=== PATIENT | female | born 1940 | race Caucasian/White ===

== ENCOUNTER 2021-01-20 15:03 | Inpatient (IN) | payer OTHER ==
[~2021-01-20] VITALS: Ht 160 cm; Wt 44.2 kg
[~2021-01-20 15:03] MED LIST: AMBIEN10 MG PO; ASPIRIN EC325 MG PO; AZITHROMYCIN250 MG PO; BACLOFEN 10MG T10 MG PO; BUMETANIDE1 MG PO; COUMADIN5 MG PO; ISOSORBIDE MONO60 MG PO; LIPITOR20 MG PO; LISINOPRIL-HCT1 EAC1 PO; MEDROL 4MG DOSEP4 MG PO; NEURONTIN300 MG PO; PREDNISONE 20MG20 MG PO; PRINIVIL20 MG PO; TOPROL XL 25MG25 MG PO; VENTOLIN HFA IN18 GM INH; WARFARIN SODIUM1 MG PO; WARFARIN SODIUM2 MG PO
[2021-01-20 15:43] LABS: EOSINOPHIL 1.9 % (0-7); HCT 34.2 % (37.0-47.0); HGB 10.2 g/dl (12.5-16.0); LYMPHOCYTE 3.6 % (15-48); MCH 21.2 pg (25.0-31.0); MCHC 29.8 g/dL (32.0-36.0); MONOCYTE 2.2 % (0-12); MPV 10.4 fL (6.0-9.5); NEUTROPHIL 83.2 % (41-80); NRBC 0.3; PLT 517 K/uL (150-400); RBC 4.82 M/uL (4.20-5.40); RDW 23.5 % (11.5-14.0); WBC 20.7 K/uL (4.0-10.5)
[2021-01-20 15:45] LABS: PROTHROMBIN TIME 61.6 SECONDS (11.4-13.6)
[2021-01-20 15:47] LABS: ALBUMIN 3.3 g/dL (3.4-5.0); CREATININE 0.95 mg/dL (0.51-0.95); GLOBULIN (CALCULATION) 3.8 g/dL; INR 7.58 (0.9-1.2); POTASSIUM 4.2 mmol/L (3.5-5.1); PTT 83.6 SECONDS (22.2-34.7); TOTAL PROTEIN 7.1 g/dL (6.4-8.2)
[2021-01-20 17:29] LABS: LACTIC ACID 1.1 mmol/L (0.4-1.9)
[2021-01-20 18:11] LABS: PRO-BNP > 35000 pg/mL (<450)
[2021-01-20 18:36] LABS: BILIRUBIN NEGATIVE (NEGATIVE); BLOOD TRACE-INTACT Ery/uL (NEGATIVE); CLARITY CLEAR (CLEAR); GLUCOSE (U) NORMAL (NORMAL); LEUKOCYTES NEGATIVE Leu/uL (NEGATIVE); NITRITE NEGATIVE (NEGATIVE); PROTEIN NEGATIVE (NEGATIVE); UROBILINOGEN 0.2 mg/dL (0.2-1.0); pH 6.5 (5.0-9.0)
[2021-01-20 18:38] LABS: COLOR COLORLESS (YELLOW)
[2021-01-20 18:45] LABS: SQUAMOUS EPITHELIAL CELLS RARE; URINARY RBC RARE; URINARY WBC RARE
[2021-01-20 21:47] LABS: CORONAVIRUS 2019 SARS-COV-2 NEGATIVE (NEGATIVE); INFLUENZA A NAA NEGATIVE (NEGATIVE)
[2021-01-20] MEDS ORDERED: WARFARIN SODIUM3 MG PO (22:27)
[2021-01-21 05:59] LABS: BASOPHIL 1.2 % (0-2); EOSINOPHIL 3.3 % (0-7); HCT 33.8 % (37.0-47.0); HGB 10.2 g/dl (12.5-16.0); LYMPHOCYTE 2.9 % (15-48); MCH 21.3 pg (25.0-31.0); MCHC 30.2 g/dL (32.0-36.0); MCV 70.4 fL (78.0-100.0); MONOCYTE 2.5 % (0-12); NEUTROPHIL 80.8 % (41-80); NRBC 0.4; PLT 474 K/uL (150-400); RDW 23.2 % (11.5-14.0); WBC 20.9 K/uL (4.0-10.5)
[2021-01-21 06:12] LABS: PROTHROMBIN TIME 74.9 SECONDS (11.4-13.6)
[2021-01-21 06:15] LABS: INR 9.72 (0.9-1.2)
[2021-01-21 06:19] LABS: BUN/CREAT RATIO (CALC) 20.7 RATIO; CREATININE 0.92 mg/dL (0.51-0.95); POTASSIUM 3.8 mmol/L (3.5-5.1)
--- NOTE | 2021-01-21 15:24 | NUR ---
01/21/21 Ms. Thomas resides at [facility]. She has a rw. [facility] is current and patient wishes to continue with their services. Affliation is understood. A referral was made to [facility] via [facility]. - Please monitor patient for home 02 needs.
--- NOTE | 2021-01-21 22:29 | NUR ---
Pt calls bedside nurse and reports restless legs. Pt is adament that drinking water would help but is on 1500cc fluid restriction. Called [facility], and relayed message. Valium 2.5mg ordered and SCD placed on patient for comfort effect.
--- NOTE | 2021-01-21 23:29 | NUR ---
Pt has purple quarter size lump that is painful to touch on right calf. Area around lump is ecchymotic but is not red or swollen. SCD removed from that leg and [facility] Morse, called and notified.
[2021-01-22 06:05] LABS: BASOPHIL 1.7 % (0-2); EOSINOPHIL 3.3 % (0-7); HCT 38.8 % (37.0-47.0); HGB 11.5 g/dl (12.5-16.0); MCH 21.3 pg (25.0-31.0); MCHC 29.6 g/dL (32.0-36.0); MCV 71.9 fL (78.0-100.0); MONOCYTE 2.5 % (0-12); NEUTROPHIL 79.2 % (41-80); PLT 560 K/uL (150-400); RDW 23.5 % (11.5-14.0); WBC 21.6 K/uL (4.0-10.5)
[2021-01-22 06:17] LABS: INR 1.65 (0.9-1.2); PROTHROMBIN TIME 18.5 SECONDS (11.4-13.6)
[2021-01-22 06:40] LABS: BAND 1 % (0-10); BASOPHIL(M) 1 % (0-2); EOSINOPHIL(M) 3 % (0-7); LYMPHOCYTE(M) 3 % (15-48); MONOCYTE(M) 4 % (0-12); MYELOCYTE 1; NEUTROPHILS(M) 87 % (41-80); TOTAL CELL COUNT 100
[2021-01-22 06:41] LABS: PLATELET ESTIMATE NORMAL; PLATELET MORPHOLOGY NORMAL
[2021-01-22 07:08] LABS: BUN/CREAT RATIO (CALC) 22.3 RATIO; CREATININE 0.94 mg/dL (0.51-0.95); POTASSIUM 3.8 mmol/L (3.5-5.1)
--- NOTE | 2021-01-22 15:30 | NUR ---
SPOKE WITH PT. NURSECHRISTI. ADVISED THAT IF PT. IS TO GO HOME ON O2 A WALK TEST WILL BE NEEDED. PT MAY BE DISCHARGED 01/23/2021, BUT UNSURE AT THIS TIME.
[2021-01-23 06:19] LABS: HCT 36.3 % (37.0-47.0); HGB 10.8 g/dl (12.5-16.0); MCH 21.1 pg (25.0-31.0); MCHC 29.8 g/dL (32.0-36.0); MCV 70.9 fL (78.0-100.0); MPV 10.7 fL (6.0-9.5); RBC 5.12 M/uL (4.20-5.40); RDW 23.6 % (11.5-14.0); WBC 19.5 K/uL (4.0-10.5)
[2021-01-23 06:27] LABS: INR 1.57 (0.9-1.2); PROTHROMBIN TIME 17.8 SECONDS (11.4-13.6)
[2021-01-23 06:40] LABS: BUN/CREAT RATIO (CALC) 23.5 RATIO; CREATININE 0.98 mg/dL (0.51-0.95); POTASSIUM 3.6 mmol/L (3.5-5.1)
--- NOTE | 2021-01-23 14:04 | NUR ---
01/23/21 Please notify [facility] if patient is discharged over the weekend, [phone].
[2021-01-24 04:50] LABS: BASOPHIL 1.6 % (0-2); EOSINOPHIL 3.7 % (0-7); HCT 36.8 % (37.0-47.0); HGB 10.6 g/dl (12.5-16.0); LYMPHOCYTE 3.9 % (15-48); MCH 20.9 pg (25.0-31.0); MCHC 28.8 g/dL (32.0-36.0); MCV 72.7 fL (78.0-100.0); MONOCYTE 2.1 % (0-12); MPV 10.6 fL (6.0-9.5); NRBC 0.3; PLT 509 K/uL (150-400); RBC 5.06 M/uL (4.20-5.40); RDW 23.7 % (11.5-14.0); WBC 22.4 K/uL (4.0-10.5)
[2021-01-24 04:54] LABS: NEUTROPHIL 79.5 % (41-80)
[2021-01-24 04:57] LABS: INR 1.53 (0.9-1.2); PROTHROMBIN TIME 17.5 SECONDS (11.4-13.6)
[2021-01-24 05:18] LABS: BILIRUBIN - TOTAL 0.7 mg/dL (0.2-1.0); BUN/CREAT RATIO (CALC) 28.6 RATIO; CREATININE 0.98 mg/dL (0.51-0.95); GLOBULIN (CALCULATION) 3.8 g/dL; POTASSIUM 4.1 mmol/L (3.5-5.1); TOTAL PROTEIN 6.8 g/dL (6.4-8.2)
[2021-01-25 04:04] LABS: BASOPHIL 1.1 % (0-2); EOSINOPHIL 1.8 % (0-7); HCT 36.5 % (37.0-47.0); HGB 10.9 g/dl (12.5-16.0); LYMPHOCYTE 4.3 % (15-48); MCH 21.3 pg (25.0-31.0); MCHC 29.9 g/dL (32.0-36.0); MCV 71.4 fL (78.0-100.0); MONOCYTE 2.5 % (0-12); NRBC 0.3; PLT 434 K/uL (150-400); RBC 5.11 M/uL (4.20-5.40); RDW 23.3 % (11.5-14.0); WBC 20.8 K/uL (4.0-10.5)
[2021-01-25 04:12] LABS: INR 1.76 (0.9-1.2); PROTHROMBIN TIME 19.5 SECONDS (11.4-13.6)
[2021-01-25 04:17] LABS: TOTAL CELL COUNT 100
[2021-01-25 04:18] LABS: BAND 8 % (0-10); LYMPHOCYTE(M) 7 % (15-48); MONOCYTE(M) 3 % (0-12); NEUTROPHILS(M) 80 % (41-80)
[2021-01-25 04:19] LABS: BASOPHIL(M) 0 % (0-2); EOSINOPHIL(M) 2 % (0-7); PLATELET ESTIMATE NORMAL; PLATELET MORPHOLOGY NORMAL
[2021-01-25 04:34] LABS: BUN/CREAT RATIO (CALC) 27.4 RATIO; CREATININE 1.13 mg/dL (0.51-0.95); MAGNESIUM 1.3 mg/dL (1.8-2.4); POTASSIUM 4.2 mmol/L (3.5-5.1)
[2021-01-25 09:16] LABS: RETICULOCYTE COUNT 3.4 % (1.0-2.0)
[2021-01-25 09:22] LABS: IRON % SATURATION 19.2 %SAT (20-50)
[2021-01-25 10:25] LABS: PHOSPHORUS 4.2 mg/dL (2.6-4.7)
[2021-01-25 21:37] LABS: BILIRUBIN NEGATIVE (NEGATIVE); BLOOD NEGATIVE Ery/uL (NEGATIVE); CLARITY CLEAR (CLEAR); COLOR YELLOW (YELLOW); GLUCOSE (U) NORMAL (NORMAL); LEUKOCYTES NEGATIVE Leu/uL (NEGATIVE); NITRITE NEGATIVE (NEGATIVE); PROTEIN NEGATIVE (NEGATIVE); SPECIFIC GRAVITY 1.015 (1.001-1.030); UROBILINOGEN 0.2 mg/dL (0.2-1.0); pH 5.5 (5.0-9.0)
[2021-01-25 21:52] LABS: URINARY RBC RARE
[2021-01-26 06:35] LABS: BASOPHIL 1.3 % (0-2); EOSINOPHIL 3.4 % (0-7); HCT 35.7 % (37.0-47.0); HGB 10.5 g/dl (12.5-16.0); LYMPHOCYTE 5.2 % (15-48); MCH 21.1 pg (25.0-31.0); MCHC 29.4 g/dL (32.0-36.0); MCV 71.8 fL (78.0-100.0); MONOCYTE 2.1 % (0-12); MPV 10.3 fL (6.0-9.5); NEUTROPHIL 79.6 % (41-80); NRBC 0.5; PLT 420 K/uL (150-400); RBC 4.97 M/uL (4.20-5.40); RDW 23.5 % (11.5-14.0); WBC 18.6 K/uL (4.0-10.5)
[2021-01-26 06:44] LABS: PROTHROMBIN TIME 21.6 SECONDS (11.4-13.6)
[2021-01-26 07:16] LABS: BUN/CREAT RATIO (CALC) 30.3 RATIO; CREATININE 1.32 mg/dL (0.51-0.95); POTASSIUM 4.1 mmol/L (3.5-5.1)
[2021-01-26 07:22] LABS: MAGNESIUM 2.2 mg/dL (1.8-2.4)
[2021-01-27 06:19] LABS: INR 2.23 (0.9-1.2); PROTHROMBIN TIME 23.5 SECONDS (11.4-13.6)
[2021-01-27 07:15] LABS: BUN/CREAT RATIO (CALC) 32.9 RATIO; CREATININE 1.55 mg/dL (0.51-0.95); POTASSIUM 4.2 mmol/L (3.5-5.1)
[2021-01-28 09:26] LABS: INR 2.41 (0.9-1.2)
[2021-01-28] MEDS ORDERED: COZAAR50 MG PO (11:03)
[2021-01-28] MEDS ORDERED: BUMETANIDE1 MG PO (11:03)
[2021-01-28] MEDS ORDERED: ASPIRIN EC81 MG PO (11:03)
[2021-01-28] MEDS ORDERED: TOPROL XL 25MG25 MG PO (11:03)
--- NOTE | 2021-01-28 11:57 | NUR ---
01/28/21 Patient will return to [facility] today. [facility] was informed of discharge.
--- NOTE | 2021-01-28 12:43 | NUR ---
DISCHARGE ORDERS RECEIVED. PT TO RETURN TO [facility] PER FAMILY. PT TO PT PICKUP BY WHEELCHAIR. IV DC'D. PT VERBALIZED UNDERSTANDING OF ALL DC ORDERS AND MEDICATIONS.
== END 2021-01-28 13:00 | DRG 281 ==
LOC: FER 15:03 → FTCU 20:03
PROVIDERS: Emergency Medicine; Emergency Medicine Emergency Medical Services; Hospitalist; Internal Medicine; Internal Medicine Cardiovascular Disease; Nurse Practitioner; Nurse Practitioner Family; ADMIT Allergy & Immunology Allergy
DX: I11.0 Hypertensive heart disease with heart failure (principal); I21.A1 Myocardial infarction type 2; J44.1 Chronic obstructive pulmonary disease with (acute) exacerbation; D68.59 Other primary thrombophilia; I50.23 Acute on chronic systolic (congestive) heart failure; F01.50 Vascular dementia, unspecified severity, without behavioral disturbance, psychotic disturbance, mood disturbance, and anxiety; I48.0 Paroxysmal atrial fibrillation; R04.0 Epistaxis; E83.42 Hypomagnesemia; Z66 Do not resuscitate; Z51.5 Encounter for palliative care; Z20.822 Contact with and (suspected) exposure to COVID-19; I25.5 Ischemic cardiomyopathy; I25.10 Atherosclerotic heart disease of native coronary artery without angina pectoris; E78.5 Hyperlipidemia, unspecified; Z98.890 Other specified postprocedural states; Z95.2 Presence of prosthetic heart valve; Z95.810 Presence of automatic (implantable) cardiac defibrillator; Z95.5 Presence of coronary angioplasty implant and graft; Z79.01 Long term (current) use of anticoagulants; Z79.82 Long term (current) use of aspirin
CPT/HCPCS: 36415; 36600; 71045; 71275; 80048; 80053; 81001; 82553; 82607; 82746; 82803; 83540; 83550; 83605; 83735; 83880; 84100; 84145; 84484; 85025; 85610; 85730; 87040; 93005; 97161; 97166; 97530-GP; 97535; G0378; J0696; J1650; J1940; J2405; J3475; J7050; Q9967; U0002

== ENCOUNTER 2021-04-03 14:54 | Inpatient (IN) | payer OTHER ==
[~2021-04-03] VITALS: Ht 160 cm; Wt 44.1 kg
[~2021-04-03 14:54] MED LIST changes: +ASPIRIN EC81 MG PO; +COZAAR50 MG PO; +WARFARIN SODIUM3 MG PO
[2021-04-03 15:55] LABS: BASOPHIL 0.5 % (0-2); EOSINOPHIL 1.7 % (0-7); HGB 10.6 g/dl (12.5-16.0); LYMPHOCYTE 3.9 % (15-48); MCH 20.1 pg (25.0-31.0); MCHC 29.4 g/dL (32.0-36.0); MCV 68.2 fL (78.0-100.0); MONOCYTE 1.9 % (0-12); NEUTROPHIL 86.8 % (41-80); NRBC 0.3; PLT 515 K/uL (150-400); RBC 5.28 M/uL (4.20-5.40)
[2021-04-03 15:56] LABS: WBC 23.5 K/uL (4.0-10.5)
[2021-04-03 16:09] LABS: INR 3.56 (0.9-1.2); PROTHROMBIN TIME 34.5 SECONDS (11.8-13.4); PTT 62.3 SECONDS (24.4-34.7)
[2021-04-03 16:10] LABS: D-DIMER 1.77 ug/mLFEU (0.00-0.41)
[2021-04-03 16:26] LABS: ALBUMIN 3.2 g/dL (3.4-5.0); BILIRUBIN - TOTAL 0.7 mg/dL (0.2-1.0); BUN/CREAT RATIO (CALC) 26.4 RATIO; CREATININE 0.91 mg/dL (0.51-0.95); GLOBULIN (CALCULATION) 3.9 g/dL; POTASSIUM 4.5 mmol/L (3.5-5.1); TOTAL PROTEIN 7.1 g/dL (6.4-8.2)
[2021-04-03 16:32] LABS: LACTIC ACID 1.4 mmol/L (0.4-1.9)
[2021-04-03 16:34] LABS: FT4 (FREE T4) 1.3 ng/dL (0.76-1.46)
[2021-04-03 16:48] LABS: LDH 780 U/L (81-234)
[2021-04-04 06:40] LABS: BASOPHIL 0.8 % (0-2); EOSINOPHIL 1.6 % (0-7); HCT 30.5 % (37.0-47.0); HGB 8.9 g/dl (12.5-16.0); LYMPHOCYTE 3.5 % (15-48); MCH 20.2 pg (25.0-31.0); MCHC 29.2 g/dL (32.0-36.0); MCV 69.2 fL (78.0-100.0); MONOCYTE 2.6 % (0-12); MPV 10.7 fL (6.0-9.5); NRBC 0.3; PLT 430 K/uL (150-400); RBC 4.41 M/uL (4.20-5.40); RDW 23.4 % (11.5-14.0); WBC 19.4 K/uL (4.0-10.5)
[2021-04-04 06:50] LABS: INR 4.19 (0.9-1.2); PROTHROMBIN TIME 39.3 SECONDS (11.8-13.4)
[2021-04-04 07:52] LABS: ALBUMIN 2.8 g/dL (3.4-5.0); BILIRUBIN - TOTAL 0.8 mg/dL (0.2-1.0); BUN/CREAT RATIO (CALC) 26.1 RATIO; CREATININE 0.88 mg/dL (0.51-0.95); GLOBULIN (CALCULATION) 3.1 g/dL; MAGNESIUM 1.6 mg/dL (1.8-2.4); POTASSIUM 3.6 mmol/L (3.5-5.1); TOTAL PROTEIN 5.9 g/dL (6.4-8.2)
[2021-04-05 06:40] LABS: EOSINOPHIL 2.8 % (0-7); HCT 33.1 % (37.0-47.0); HGB 9.6 g/dl (12.5-16.0); LYMPHOCYTE 3.3 % (15-48); MCH 20.3 pg (25.0-31.0); MCV 69.8 fL (78.0-100.0); MONOCYTE 2.4 % (0-12); NEUTROPHIL 83.5 % (41-80); NRBC 0.2; PLT 454 K/uL (150-400); RBC 4.74 M/uL (4.20-5.40); RDW 23.4 % (11.5-14.0); WBC 19.5 K/uL (4.0-10.5)
[2021-04-05 06:53] LABS: INR 3.45 (0.9-1.2); PROTHROMBIN TIME 33.7 SECONDS (11.8-13.4)
[2021-04-05 07:04] LABS: ALBUMIN 2.8 g/dL (3.4-5.0); BILIRUBIN - TOTAL 0.8 mg/dL (0.2-1.0); BUN/CREAT RATIO (CALC) 21.5 RATIO; CREATININE 0.93 mg/dL (0.51-0.95); GLOBULIN (CALCULATION) 3.3 g/dL; MAGNESIUM 1.9 mg/dL (1.8-2.4); POTASSIUM 4.6 mmol/L (3.5-5.1); TOTAL PROTEIN 6.1 g/dL (6.4-8.2)
[2021-04-05 07:35] LABS: TOTAL CELL COUNT 100
[2021-04-05 07:38] LABS: EOSINOPHIL(M) 3 % (0-7); LYMPHOCYTE(M) 2 % (15-48); MONOCYTE(M) 2 % (0-12); NEUTROPHILS(M) 90 % (41-80)
[2021-04-05 07:39] LABS: ANISOCYTOSIS MODERATE; PLATELET ESTIMATE INCREASED; PLATELET MORPHOLOGY NORMAL; POIKILOCYTOSIS SLIGHT; PROMYELOCYTE 3
[2021-04-05] MEDS ORDERED: BUMEX1 MG PO (14:00)
[2021-04-05] MEDS ORDERED: POTASSIUM CHLO10 ME1 PO (14:00)
== END 2021-04-05 14:45 | disposition home or self-care (01) | DRG 291 ==
LOC: FER 14:54 → FMS 20:47
PROVIDERS: Emergency Medicine; Nurse Practitioner; ADMIT Internal Medicine
DX: I11.0 Hypertensive heart disease with heart failure (principal); J96.01 Acute respiratory failure with hypoxia; I50.33 Acute on chronic diastolic (congestive) heart failure; I25.10 Atherosclerotic heart disease of native coronary artery without angina pectoris; D72.828 Other elevated white blood cell count; Z20.822 Contact with and (suspected) exposure to COVID-19; I25.5 Ischemic cardiomyopathy; I48.0 Paroxysmal atrial fibrillation; Z66 Do not resuscitate; N32.81 Overactive bladder; F01.50 Vascular dementia, unspecified severity, without behavioral disturbance, psychotic disturbance, mood disturbance, and anxiety; Z95.5 Presence of coronary angioplasty implant and graft; I25.2 Old myocardial infarction; Z95.2 Presence of prosthetic heart valve; Z79.01 Long term (current) use of anticoagulants; Z95.810 Presence of automatic (implantable) cardiac defibrillator; Z90.81 Acquired absence of spleen; Z79.899 Other long term (current) drug therapy
CPT/HCPCS: 36415; 36600; 71045; 80053; 82728; 82803; 83605; 83615; 83735; 83880; 84100; 84145; 84439; 84443; 84484; 85025; 85379; 85610; 85730; 87040; 93005; J2543; J3475; U0002

== ENCOUNTER 2021-05-07 17:31 | Emergency (ER) | payer OTHER ==
[~2021-05-07 17:31] MED LIST changes: +BUMEX1 MG PO; +POTASSIUM CHLO10 ME1 PO
[2021-05-07 21:46] LABS: EOSINOPHIL 3.6 % (0-7); HCT 35.5 % (37.0-47.0); HGB 10.4 g/dl (12.5-16.0); LYMPHOCYTE 3.6 % (15-48); MCH 20.4 pg (25.0-31.0); MCHC 29.3 g/dL (32.0-36.0); MCV 69.7 fL (78.0-100.0); MONOCYTE 2.7 % (0-12); NEUTROPHIL 80.2 % (41-80); NRBC 0.5; PLT 390 K/uL (150-400); RBC 5.09 M/uL (4.20-5.40); RDW 24.3 % (11.5-14.0)
[2021-05-07 21:57] LABS: INR 2.24 (0.9-1.2); PROTHROMBIN TIME 23.9 SECONDS (11.8-13.4)
[2021-05-07 22:04] LABS: BUN/CREAT RATIO (CALC) 32.3 RATIO; CREATININE 0.96 mg/dL (0.51-0.95); POTASSIUM 3.7 mmol/L (3.5-5.1)
[2021-05-07 22:23] LABS: WBC 22.3 K/uL (4.0-10.5)
[2021-05-07 22:46] LABS: BILIRUBIN NEGATIVE (NEGATIVE); BLOOD TRACE-INTACT Ery/uL (NEGATIVE); COLOR YELLOW (YELLOW); GLUCOSE (U) NORMAL (NORMAL); LEUKOCYTES 1+ Leu/uL (NEGATIVE); NITRITE NEGATIVE (NEGATIVE); PROTEIN NEGATIVE (NEGATIVE); UROBILINOGEN 0.2 mg/dL (0.2-1.0); pH 5.5 (5.0-9.0)
[2021-05-07 22:54] LABS: CLARITY SLIGHTLY HAZY (CLEAR)
[2021-05-07 22:58] LABS: BACTERIA 1+
[2021-05-07 22:59] LABS: URIC ACID CRYSTALS MODERATE
== END 2021-05-08 00:45 | disposition home or self-care (01) ==
LOC: FER 17:31
PROVIDERS: Nurse Practitioner Family
DX: S51.812A Laceration without foreign body of left forearm, initial encounter (principal); D72.829 Elevated white blood cell count, unspecified; I10 Essential (primary) hypertension; F01.50 Vascular dementia, unspecified severity, without behavioral disturbance, psychotic disturbance, mood disturbance, and anxiety; W23.1XXA Caught, crushed, jammed, or pinched between stationary objects, initial encounter
CPT/HCPCS: 36415; 80048; 81001; 83605; 85025; 85610

== ENCOUNTER 2021-06-21 13:47 | Day surgery (SDCO) | payer OTHER ==
[~2021-06-21] VITALS: Ht 160 cm; Wt 50.0 kg
[2021-06-21 14:06] LABS: BASOPHIL 0.6 % (0-2); EOSINOPHIL 2.2 % (0-7); HGB 10.4 g/dl (12.5-16.0); LYMPHOCYTE 2.4 % (15-48); MCH 20.2 pg (25.0-31.0); MCHC 28.9 g/dL (32.0-36.0); NRBC 0.3; PLT 578 K/uL (150-400); RBC 5.14 M/uL (4.20-5.40); RDW 24.9 % (11.5-14.0)
[2021-06-21 14:30] LABS: WBC 34.4 K/uL (4.0-10.5)
[2021-06-21 14:33] LABS: ALBUMIN 3.3 g/dL (3.4-5.0); BILIRUBIN - TOTAL 0.7 mg/dL (0.2-1.0); BUN/CREAT RATIO (CALC) 25.3 RATIO; CREATININE 0.99 mg/dL (0.51-0.95); GLOBULIN (CALCULATION) 4.3 g/dL; POTASSIUM 4.2 mmol/L (3.5-5.1); TOTAL PROTEIN 7.6 g/dL (6.4-8.2)
[2021-06-21 14:40] LABS: CORONAVIRUS 2019 SARS-COV-2 NEGATIVE (NEGATIVE); INFLUENZA A NAA NEGATIVE (NEGATIVE)
[2021-06-21 15:12] LABS: INR 3.02 (0.9-1.2); PROTHROMBIN TIME 30.3 SECONDS (11.8-13.4)
[2021-06-21 15:17] LABS: C-REACTIVE PROTEIN 3.8 mg/dL (<=0.90); MAGNESIUM 1.7 mg/dL (1.8-2.4); PHOSPHORUS 3.3 mg/dL (2.6-4.7)
[2021-06-21 16:37] LABS: IRON % SATURATION 3.8 %SAT (20-50)
[2021-06-22 02:29] LABS: BILIRUBIN NEGATIVE (NEGATIVE); BLOOD 3+ Ery/uL (NEGATIVE); CLARITY CLEAR (CLEAR); COLOR YELLOW (YELLOW); GLUCOSE (U) NORMAL (NORMAL); LEUKOCYTES NEGATIVE Leu/uL (NEGATIVE); NITRITE NEGATIVE (NEGATIVE); PROTEIN TRACE (LOW) mg/dL (NEGATIVE); UROBILINOGEN 0.2 mg/dL (0.2-1.0); pH 5.5 (5.0-9.0)
[2021-06-22 02:43] LABS: BACTERIA TRACE; URIC ACID CRYSTALS LARGE
[2021-06-22 06:32] LABS: BASOPHIL 0.5 % (0-2); EOSINOPHIL 0.6 % (0-7); HCT 29.1 % (37.0-47.0); HGB 8.5 g/dl (12.5-16.0); LYMPHOCYTE 1.4 % (15-48); MCH 20.3 pg (25.0-31.0); MCHC 29.2 g/dL (32.0-36.0); MCV 69.6 fL (78.0-100.0); MPV 10.5 fL (6.0-9.5); NEUTROPHIL 88.3 % (41-80); NRBC 0.2; PLT 371 K/uL (150-400); RBC 4.18 M/uL (4.20-5.40); RDW 24.2 % (11.5-14.0)
[2021-06-22 06:39] LABS: INR 4.86 (0.9-1.2); PROTHROMBIN TIME 44.2 SECONDS (11.8-13.4)
[2021-06-22 06:48] LABS: WBC 30.3 K/uL (4.0-10.5)
[2021-06-22 06:55] LABS: ALBUMIN 2.7 g/dL (3.4-5.0); BILIRUBIN - TOTAL 0.5 mg/dL (0.2-1.0); BUN/CREAT RATIO (CALC) 27.3 RATIO; C-REACTIVE PROTEIN 7.4 mg/dL (<=0.90); CREATININE 0.99 mg/dL (0.51-0.95); GLOBULIN (CALCULATION) 3.1 g/dL; PHOSPHORUS 4.7 mg/dL (2.6-4.7); TOTAL PROTEIN 5.8 g/dL (6.4-8.2)
[2021-06-22 11:55] LABS: PROTHROMBIN TIME 47.8 SECONDS (11.8-13.4)
[2021-06-22 11:58] LABS: INR 5.37 (0.9-1.2)
--- NOTE | 2021-06-22 16:21 | NUR ---
06/22/21 Ms. Thomas was admitted from [facility]. She has a rw. [facility] is current and have been notified of admission via [facility]. Katherine at [facility] reports that patient may return to Assisted Living if IV antibiotics are not required. - Please monitor for 02 needs.
[2021-06-23 06:26] LABS: EOSINOPHIL 3.1 % (0-7); HCT 36.1 % (37.0-47.0); HGB 10.4 g/dl (12.5-16.0); MCH 20.7 pg (25.0-31.0); MCHC 28.8 g/dL (32.0-36.0); MCV 71.8 fL (78.0-100.0); MONOCYTE 2.1 % (0-12); NEUTROPHIL 83.2 % (41-80); NRBC 0.3; PLT 561 K/uL (150-400); RBC 5.03 M/uL (4.20-5.40); RDW 24.9 % (11.5-14.0)
[2021-06-23 06:58] LABS: ALBUMIN 3.1 g/dL (3.4-5.0); BILIRUBIN - TOTAL 0.6 mg/dL (0.2-1.0); BUN/CREAT RATIO (CALC) 28.1 RATIO; CREATININE 0.96 mg/dL (0.51-0.95); GLOBULIN (CALCULATION) 4.2 g/dL; POTASSIUM 4.4 mmol/L (3.5-5.1); TOTAL PROTEIN 7.3 g/dL (6.4-8.2)
[2021-06-23 07:36] LABS: WBC 34.1 K/uL (4.0-10.5)
[2021-06-24 06:33] LABS: INR 3.33 (0.9-1.2); PROTHROMBIN TIME 32.7 SECONDS (11.8-13.4)
[2021-06-24 06:35] LABS: BASOPHIL 0.9 % (0-2); HCT 32.1 % (37.0-47.0); HGB 9.2 g/dl (12.5-16.0); LYMPHOCYTE 2.1 % (15-48); MCH 20.2 pg (25.0-31.0); MCHC 28.7 g/dL (32.0-36.0); MCV 70.5 fL (78.0-100.0); MONOCYTE 2.5 % (0-12); NEUTROPHIL 81.5 % (41-80); NRBC 0.3; PLT 484 K/uL (150-400); RBC 4.55 M/uL (4.20-5.40); RDW 24.6 % (11.5-14.0)
[2021-06-24 06:47] LABS: ALBUMIN 2.7 g/dL (3.4-5.0); BILIRUBIN - TOTAL 0.5 mg/dL (0.2-1.0); BUN/CREAT RATIO (CALC) 26.3 RATIO; CREATININE 0.76 mg/dL (0.51-0.95); GLOBULIN (CALCULATION) 3.2 g/dL; POTASSIUM 4.6 mmol/L (3.5-5.1); TOTAL PROTEIN 5.9 g/dL (6.4-8.2)
[2021-06-24 06:54] LABS: PTT 77.2 SECONDS (24.4-34.7)
[2021-06-25 06:57] LABS: BASOPHIL 0.9 % (0-2); EOSINOPHIL 1.8 % (0-7); HCT 30.3 % (37.0-47.0); HGB 8.8 g/dl (12.5-16.0); LYMPHOCYTE 2.6 % (15-48); MCH 20.5 pg (25.0-31.0); MCV 70.6 fL (78.0-100.0); MONOCYTE 2.9 % (0-12); MPV 10.7 fL (6.0-9.5); NEUTROPHIL 83.4 % (41-80); NRBC 0.3; PLT 433 K/uL (150-400); RBC 4.29 M/uL (4.20-5.40); RDW 24.4 % (11.5-14.0); RETICULOCYTE COUNT 3.4 % (1.0-2.0); WBC 24.3 K/uL (4.0-10.5)
[2021-06-25 07:25] LABS: IRON % SATURATION 5.9 %SAT (20-50)
[2021-06-25 08:23] LABS: ALBUMIN 2.7 g/dL (3.4-5.0); BILIRUBIN - TOTAL 0.7 mg/dL (0.2-1.0); BUN/CREAT RATIO (CALC) 24.7 RATIO; CREATININE 0.73 mg/dL (0.51-0.95); FOLIC ACID (SERUM) 18.2 ng/mL (8.6-58.9); FT4 (FREE T4) 1.2 ng/dL (0.76-1.46); GLOBULIN (CALCULATION) 3.7 g/dL; MAGNESIUM 1.4 mg/dL (1.8-2.4); POTASSIUM 4.1 mmol/L (3.5-5.1); TOTAL PROTEIN 6.4 g/dL (6.4-8.2)
--- NOTE | 2021-06-25 17:42 | NUR ---
06/25/21 Please notify [facility] at [phone] if patient discharges over the weekend.
[2021-06-26 06:57] LABS: BASOPHIL 0.9 % (0-2); EOSINOPHIL 2.3 % (0-7); HCT 30.7 % (37.0-47.0); HGB 8.7 g/dl (12.5-16.0); LYMPHOCYTE 2.7 % (15-48); MCH 20.3 pg (25.0-31.0); MCHC 28.3 g/dL (32.0-36.0); MCV 71.7 fL (78.0-100.0); MONOCYTE 2.7 % (0-12); NEUTROPHIL 85.3 % (41-80); NRBC 0.3; PLT 393 K/uL (150-400); RBC 4.28 M/uL (4.20-5.40); RDW 24.6 % (11.5-14.0); WBC 28.1 K/uL (4.0-10.5)
[2021-06-26 07:15] LABS: ALBUMIN 2.4 g/dL (3.4-5.0); BILIRUBIN - TOTAL 0.5 mg/dL (0.2-1.0); BUN/CREAT RATIO (CALC) 23.4 RATIO; CREATININE 0.77 mg/dL (0.51-0.95); GLOBULIN (CALCULATION) 3.6 g/dL; MAGNESIUM 1.8 mg/dL (1.8-2.4); POTASSIUM 4.3 mmol/L (3.5-5.1)
[2021-06-26 15:10] LABS: HBSAG CONFIRMATION Negative (.); HBSAG SCREEN Confirm. indicated (Negative); HEP A AB, IGM Positive (Negative); HEP B CORE AB, IGM Negative (Negative); HEP C VIRUS AB <0.1 (0.0-0.9)
[2021-06-26 16:10] LABS: IMMUNOGLOBULIN A, QN, SERUM 280 mg/dL (64-422); IMMUNOGLOBULIN G, QN, SERUM 910 mg/dL (586-1602); IMMUNOGLOBULIN M, QN, SERUM 155 mg/dL (26-217)
[2021-06-27 04:39] LABS: ALBUMIN 2.5 g/dL (3.4-5.0); BILIRUBIN - TOTAL 0.5 mg/dL (0.2-1.0); BUN/CREAT RATIO (CALC) 24.7 RATIO; CREATININE 0.81 mg/dL (0.51-0.95); GLOBULIN (CALCULATION) 3.4 g/dL; POTASSIUM 4.2 mmol/L (3.5-5.1); TOTAL PROTEIN 5.9 g/dL (6.4-8.2)
[2021-06-27] MEDS ORDERED: NIFEREX150 MG PO (11:15)
[2021-06-27] MEDS ORDERED: VENTOLIN HFA IN18 GM INH (11:15)
[2021-06-27] MEDS ORDERED: JANTOVEN1 MG PO (12:50)
== END 2021-06-27 14:30 ==
LOC: FER 13:47 → FTCU 14:53
PROVIDERS: Internal Medicine; Internal Medicine Hematology & Oncology; ADMIT Family Medicine
DX: D72.829 Elevated white blood cell count, unspecified (principal); R53.83 Other fatigue; D50.9 Iron deficiency anemia, unspecified; D68.9 Coagulation defect, unspecified; N18.30 Chronic kidney disease, stage 3 unspecified; I50.22 Chronic systolic (congestive) heart failure; I48.91 Unspecified atrial fibrillation; I25.10 Atherosclerotic heart disease of native coronary artery without angina pectoris; R16.1 Splenomegaly, not elsewhere classified; J96.01 Acute respiratory failure with hypoxia; R65.10 Systemic inflammatory response syndrome (SIRS) of non-infectious origin without acute organ dysfunction; R94.31 Abnormal electrocardiogram [ECG] [EKG]; E83.42 Hypomagnesemia; D75.839 Thrombocytosis, unspecified; I07.1 Rheumatic tricuspid insufficiency; Z66 Do not resuscitate; Z79.01 Long term (current) use of anticoagulants; Z79.899 Other long term (current) drug therapy; Z95.0 Presence of cardiac pacemaker; Z95.2 Presence of prosthetic heart valve; Z95.5 Presence of coronary angioplasty implant and graft; Z20.822 Contact with and (suspected) exposure to COVID-19
CPT/HCPCS: 36415; 36600; 71045; 71275; 80048; 80053; 80074; 81001; 82607; 82668; 82728; 82746; 82803; 83036; 83540; 83550; 83605; 83615; 83735; 83880; 84100; 84145; 84439; 84443; 84481; 84484; 85018; 85025; 85379; 85610; 85730; 86140; 86334; 86708; 87040; 87088; 93005; 94010; 94640; 94664; 94760; 94762; 97162; 97166; 97530-GP; 97535; G0378; J0692; J1100; J2405; J2543; J2765; J2916; J3475; J7030; J7050; Q9967; U0002

== ENCOUNTER 2021-06-28 17:38 | Inpatient (IN) | payer OTHER ==
[~2021-06-28] VITALS: Ht 160 cm; Wt 50.1 kg
[~2021-06-28 17:38] MED LIST changes: +JANTOVEN1 MG PO; +NIFEREX150 MG PO
[2021-06-28 18:24] LABS: BASOPHIL 0.7 % (0-2); HCT 31.5 % (37.0-47.0); HGB 9.2 g/dl (12.5-16.0); LYMPHOCYTE 2.4 % (15-48); MCH 20.6 pg (25.0-31.0); MCHC 29.2 g/dL (32.0-36.0); MCV 70.5 fL (78.0-100.0); MONOCYTE 3.3 % (0-12); NEUTROPHIL 83.1 % (41-80); NRBC 0.6; PLT 450 K/uL (150-400); RBC 4.47 M/uL (4.20-5.40); RDW 25.3 % (11.5-14.0)
[2021-06-28 18:33] LABS: INR 1.57 (0.9-1.2)
[2021-06-28 18:34] LABS: PTT 48.4 SECONDS (24.4-34.7)
[2021-06-28 18:41] LABS: BILIRUBIN - TOTAL 0.6 mg/dL (0.2-1.0); BUN/CREAT RATIO (CALC) 22.7 RATIO; CREATININE 0.97 mg/dL (0.51-0.95); GLOBULIN (CALCULATION) 3.8 g/dL; POTASSIUM 4.4 mmol/L (3.5-5.1); TOTAL PROTEIN 6.8 g/dL (6.4-8.2)
[2021-06-28 18:44] LABS: WBC 24.2 K/uL (4.0-10.5)
[2021-06-28 19:07] LABS: LACTIC ACID 0.8 mmol/L (0.4-1.9)
[2021-06-28 21:50] LABS: BILIRUBIN NEGATIVE (NEGATIVE); BLOOD 1+ Ery/uL (NEGATIVE); COLOR YELLOW (YELLOW); GLUCOSE (U) NORMAL (NORMAL); LEUKOCYTES NEGATIVE Leu/uL (NEGATIVE); NITRITE NEGATIVE (NEGATIVE); PROTEIN NEGATIVE (NEGATIVE); SPECIFIC GRAVITY 1.015 (1.001-1.030); UROBILINOGEN 0.2 mg/dL (0.2-1.0); pH 5.5 (5.0-9.0)
[2021-06-28 21:51] LABS: CLARITY CLEAR (CLEAR)
[2021-06-28 21:55] LABS: BACTERIA TRACE; SQUAMOUS EPITHELIAL CELLS RARE; URIC ACID CRYSTALS MODERATE; URINARY WBC RARE
[2021-06-29 05:55] LABS: BUN/CREAT RATIO (CALC) 21.1 RATIO; CREATININE 1.09 mg/dL (0.51-0.95); POTASSIUM 4.2 mmol/L (3.5-5.1)
[2021-06-29 05:56] LABS: EOSINOPHIL 2.7 % (0-7); HCT 31.3 % (37.0-47.0); LYMPHOCYTE 2.6 % (15-48); MCH 20.4 pg (25.0-31.0); MCHC 28.8 g/dL (32.0-36.0); MONOCYTE 3.1 % (0-12); NEUTROPHIL 81.5 % (41-80); NRBC 0.3; PLT 394 K/uL (150-400); RBC 4.41 M/uL (4.20-5.40); RDW 25.5 % (11.5-14.0); WBC 25.9 K/uL (4.0-10.5)
[2021-06-29 06:03] LABS: MAGNESIUM 2.9 mg/dL (1.8-2.4)
[2021-06-29 06:25] LABS: ANISOCYTOSIS MODERATE; BAND 10 % (0-10); LYMPHOCYTE(M) 4 % (15-48); METAMYELOCYTE 4; MONOCYTE(M) 3 % (0-12); NEUTROPHILS(M) 79 % (41-80); POIKILOCYTOSIS SLIGHT
[2021-06-29 06:26] LABS: PLATELET ESTIMATE NORMAL; PLATELET MORPHOLOGY NORMAL; POLYCHROMASIA SLIGHT
--- NOTE | 2021-06-29 10:28 | NUR ---
06/29/2021 Ms. Thomas is a resident at [facility]. [facility] will accept back if patient continue to be able to manage her ADLS / mobility and not on IV antibiotics. She has a rw and current with [facility]. [facility] was notified of admission.
[2021-06-30 04:32] LABS: BASOPHIL 0.8 % (0-2); EOSINOPHIL 2.6 % (0-7); HCT 30.8 % (37.0-47.0); HGB 9.1 g/dl (12.5-16.0); LYMPHOCYTE 2.9 % (15-48); MCH 21.1 pg (25.0-31.0); MCHC 29.5 g/dL (32.0-36.0); MCV 71.3 fL (78.0-100.0); MONOCYTE 2.7 % (0-12); NEUTROPHIL 82.4 % (41-80); PLT 421 K/uL (150-400); RBC 4.32 M/uL (4.20-5.40); RDW 25.7 % (11.5-14.0); WBC 27.5 K/uL (4.0-10.5)
[2021-06-30 04:55] LABS: ANISOCYTOSIS MARKED; BAND 7 % (0-10); BASOPHIL(M) 1 % (0-2); BLAST 1; BUN/CREAT RATIO (CALC) 18.6 RATIO; CREATININE 1.18 mg/dL (0.51-0.95); EOSINOPHIL(M) 4 % (0-7); LYMPHOCYTE(M) 1 % (15-48); METAMYELOCYTE 1; MONOCYTE(M) 5 % (0-12); MYELOCYTE 2; NEUTROPHILS(M) 78 % (41-80); POIKILOCYTOSIS SLIGHT; POTASSIUM 3.8 mmol/L (3.5-5.1); TOTAL CELL COUNT 100
[2021-06-30 04:56] LABS: DACRYOCYTES (TEAR DROP CELLS) RARE; ELLIPTOCYTES (OVALOCYTES) 1+; POLYCHROMASIA SLIGHT
[2021-06-30 05:01] LABS: NRBC 0; PLATELET ESTIMATE INCREASED
[2021-06-30 05:02] LABS: PLATELET MORPHOLOGY NORMAL
[2021-06-30 10:14] LABS: INR 1.78 (0.9-1.2); PROTHROMBIN TIME 19.9 SECONDS (11.8-13.4)
[2021-07-01 06:14] LABS: BASOPHIL 1.1 % (0-2); EOSINOPHIL 2.4 % (0-7); HCT 33.7 % (37.0-47.0); HGB 9.7 g/dl (12.5-16.0); LYMPHOCYTE 2.5 % (15-48); MCH 20.8 pg (25.0-31.0); MCHC 28.8 g/dL (32.0-36.0); MCV 72.2 fL (78.0-100.0); MONOCYTE 2.1 % (0-12); NEUTROPHIL 81.8 % (41-80); NRBC 0.1; PLT 471 K/uL (150-400); RBC 4.67 M/uL (4.20-5.40); RDW 26.2 % (11.5-14.0); WBC 26.9 K/uL (4.0-10.5)
[2021-07-01 06:17] LABS: INR 2.04 (0.9-1.2); PROTHROMBIN TIME 22.2 SECONDS (11.8-13.4)
[2021-07-01 06:34] LABS: ALBUMIN 2.9 g/dL (3.4-5.0); BILIRUBIN - TOTAL 0.6 mg/dL (0.2-1.0); BUN/CREAT RATIO (CALC) 25.8 RATIO; CREATININE 0.93 mg/dL (0.51-0.95); GLOBULIN (CALCULATION) 3.8 g/dL; POTASSIUM 3.9 mmol/L (3.5-5.1); TOTAL PROTEIN 6.7 g/dL (6.4-8.2)
[2021-07-02 06:17] LABS: INR 2.53 (0.9-1.2); PROTHROMBIN TIME 26.3 SECONDS (11.8-13.4)
[2021-07-02 06:41] LABS: BUN/CREAT RATIO (CALC) 24.7 RATIO; CREATININE 0.85 mg/dL (0.51-0.95)
[2021-07-02] MEDS ORDERED: BUMETANIDE1 MG PO (09:25)
[2021-07-02] MEDS ORDERED: COZAAR50 MG PO (09:25)
[2021-07-02] MEDS ORDERED: JANTOVEN1 MG PO (09:25)
--- NOTE | 2021-07-02 10:25 | NUR ---
07/02/21 [facility] was notified of discharge.
== END 2021-07-02 12:17 | disposition home health service (06) | DRG 291 ==
LOC: FER 17:38 → FTCU 23:53 → FMS 07-01 07:29
PROVIDERS: Allergy & Immunology; Emergency Medicine; Family Medicine; Internal Medicine; Nurse Practitioner Family; ADMIT Internal Medicine
DX: I13.0 Hypertensive heart and chronic kidney disease with heart failure and stage 1 through stage 4 chronic kidney disease, or unspecified chronic kidney disease (principal); I50.23 Acute on chronic systolic (congestive) heart failure; R64 Cachexia; Z68.1 Body mass index [BMI] 19.9 or less, adult; N18.30 Chronic kidney disease, stage 3 unspecified; I48.91 Unspecified atrial fibrillation; D50.9 Iron deficiency anemia, unspecified; Z66 Do not resuscitate; Z20.822 Contact with and (suspected) exposure to COVID-19; I25.10 Atherosclerotic heart disease of native coronary artery without angina pectoris; E83.42 Hypomagnesemia; D63.1 Anemia in chronic kidney disease; E83.41 Hypermagnesemia; D72.829 Elevated white blood cell count, unspecified; R16.1 Splenomegaly, not elsewhere classified; Z95.2 Presence of prosthetic heart valve; Z87.01 Personal history of pneumonia (recurrent); Z95.5 Presence of coronary angioplasty implant and graft; Z82.49 Family history of ischemic heart disease and other diseases of the circulatory system
CPT/HCPCS: 36415; 71045; 71046; 76705; 80048; 80053; 81001; 83605; 83735; 83880; 84484; 85025; 85610; 85730; 86140; 93005; 94010; J1650; J2543; J3370; J3475; J7050; U0002